=== PATIENT | female | born 1960 | race Two or more races ===

== ENCOUNTER 2022-06-18 09:48 | Outpatient (REF) | payer BC, SELFPAY ==
[2022-06-18 16:48] LABS: Hemoglobin A1C 5.9 % (<5.7)
[2022-06-18 18:53] LABS: ALT 29 U/L (14-59); AST 17 U/L (15-37); Albumin 3.8 g/dL (3.4-5.0); Alkaline Phosphatase 119 U/L (46-116); Anion Gap 9.9 mmol/L (3-11); BUN 15 mg/dL (7-18); Bilirubin, Total 0.3 mg/dL (0.2-1.0); CO2 26.1 mmol/L (21.0-32.0); CREATININE 0.9 mg/dL (0.55-1.02); Calculated LDL 125 mg/dL (<100); Chloride 103 mmol/L (98-107); Cholesterol 235 mg/dL (<200); Estimated GFR 71.83 (mL/min/1.73m2); Glucose 90 mg/dL (74-106); HDL Cholesterol 70 mg/dL (40-60); Potassium 4.5 mmol/L (3.5-5.1); Sodium 139 mmol/L (136-145); TSH 3.52 uIU/mL (0.36-3.74); Total Protein 7.8 g/dL (6.4-8.2); Triglyceride 201 mg/dL (<150)
== END 2022-06-18 09:49 | disposition home or self-care (01) ==
LOC: NCHCN 09:48
PROVIDERS: Visit Provider Physician Assistant Medical
DX: E03.9 Hypothyroidism, unspecified (principal); E78.5 Hyperlipidemia, unspecified; R73.03 Prediabetes
CPT/HCPCS: 80053; 80061; 83036; 84443

== ENCOUNTER 2023-08-16 19:43 | Outpatient (REF) | payer BC, SELFPAY ==
[2023-08-16 19:34] LABS: Cholesterol 237 mg/dL (<200); HDL Cholesterol 59 mg/dL (40-60); TSH 0.81 uIU/mL (0.36-3.74); Triglyceride 477 mg/dL (<150)
[2023-08-16 19:40] LABS: Hemoglobin A1C 5.6 % (<5.7)
[2023-08-16 19:48] LABS: LDL CHOLESTEROL 119 mg/dL (<100)
== END 2023-08-16 19:44 | disposition home or self-care (01) ==
LOC: NCHCN 19:43
PROVIDERS: Visit Provider Physician Assistant Medical
DX: E03.9 Hypothyroidism, unspecified (principal); E78.5 Hyperlipidemia, unspecified; R73.03 Prediabetes
CPT/HCPCS: 80061; 83721; 83036; 84443

== ENCOUNTER 2024-07-06 15:12 | Outpatient (REF) | payer MEDICARE, BC, SELFPAY ==
--- NOTE | 2024-07-06 11:46 | PAPFT_PTH ---
PATIENT: Thony Carr LOC: [facility] U#:[id number] AGE/SX: 64/F ROOM: RE07/06/[address]: Asad Acharya : 1960 BED: DIS: 07/06/2024 SPEC #: [id number] RECD: 07/06/24 18:35 STATUS: ALISTAIR REQ #: [id number] ALBERTA: 07/06/24 11:[address]: Asad Acharya DEPT: [facility] Cytology RECD BY: Niurka iDane Tissues: 1 - CX/ENDOCX FOR PAP SMEARS Procedures: PAP THIN PREP/[facility] Screening HPV DNA PROBE Comments: [id number] (HPV 16 & 18/45)
[2024-07-06 17:13] LABS: Hemoglobin A1C 5.6 % (<5.7)
[2024-07-06 17:45] LABS: Calculated LDL 130 mg/dL (<100); Cholesterol 255 mg/dL (<200); HDL Cholesterol 70 mg/dL (40-60); Triglyceride 275 mg/dL (<150)
[2024-07-06 18:06] LABS: Vitamin D 25 Total 106.8 ng/mL (30-100)
[2024-07-06 18:18] LABS: ALT 37 U/L (14-59); AST 23 U/L (15-37); Albumin 3.3 g/dL (3.4-5.0); Alkaline Phosphatase 127 U/L (46-116); Bilirubin, Direct 0.1 mg/dL (0.0-0.2); Bilirubin, Total 0.26 mg/dL (0.2-1.0); TSH 0.89 uIU/mL (0.36-3.74); Total Protein 6.8 g/dL (6.4-8.2)
== END 2024-07-06 15:13 | disposition home or self-care (01) ==
LOC: NCHCN 15:12
PROVIDERS: PCP Physician Assistant Medical; Visit Provider Physician Assistant Medical
DX: E03.9 Hypothyroidism, unspecified (principal); R73.03 Prediabetes; E78.5 Hyperlipidemia, unspecified; M85.89 Other specified disorders of bone density and structure, multiple sites
CPT/HCPCS: 80061; 80076; 82306; 88142; 83036; 84443; 87624

== ENCOUNTER 2025-07-12 12:43 | Outpatient (CLI) | payer MEDICARE, BC, SELFPAY ==
[2025-07-12 12:43] LABS: HCT 47.7 % (36.0-46.0); HGB 15.6 g/dL (11.2-15.7); MCH 30.4 pg (27.0-33.0); MCHC 32.7 % (32.0-36.0); MCV 93 fL (80-95); MPV 11.2 fL (8.0-11.0); Platelet Count 192 10^3/uL (130-400); RBC 5.14 10^6/uL (3.93-5.22); RDW 12.2 % (11.7-14.6); RDW-SD 42.1 fL; WBC 8.23 10^3/uL (4.4-10.8)
[2025-07-12 14:16] LABS: ALT 26 U/L (14-59); AST 16 U/L (15-37); Albumin 3.7 g/dL (3.4-5.0); Alkaline Phosphatase 139 U/L (46-116); Anion Gap 9.5 mmol/L (3-11); BUN 12 mg/dL (7-18); Bilirubin, Total 0.3 mg/dL (0.2-1.0); CO2 30.5 mmol/L (21.0-32.0); Calcium 9.4 mg/dL (8.5-10.1); Chloride 103 mmol/L (98-107); Ferritin 131 ng/mL (8-252); Glucose 86 mg/dL (74-106); Potassium 3.9 mmol/L (3.5-5.1); Sodium 143 mmol/L (136-145); TSH (W/Ref FT4) 0.37 uIU/mL (0.36-3.74); Total Protein 7.2 g/dL (6.4-8.2); Vitamin B12 1193 pg/mL (193-986); Vitamin D 25 Total 81 ng/mL (30-100)
[2025-07-12 14:32] LABS: Iron 115 ug/dL (50-170)
[2025-07-13 10:32] LABS: Hepatitis C Ab w Rflx HCV PCR Negative (Negative)
[2025-07-14 11:18] LABS: Zinc, S 106 mcg/dL (60-106)
== END 2025-07-12 12:44 | disposition home or self-care (01) ==
LOC: LBO 12:45
PROVIDERS: PCP Physician Assistant Medical; Visit Provider Physician Assistant Medical
DX: R74.8 Abnormal levels of other serum enzymes (principal); L60.3 Nail dystrophy; M85.80 Other specified disorders of bone density and structure, unspecified site; E03.9 Hypothyroidism, unspecified; Z00.00 Encounter for general adult medical examination without abnormal findings
CPT/HCPCS: 36415; 80053; 82306; 84630; 85027; 86803; 82607; 82728; 83540; 84255; 84443; 86038